=== PATIENT | female | born 1995 | race Caucasian/White ===

== ENCOUNTER 2017-11-25 18:47 | Emergency (ER) | payer OTHER ==
[2017-11-25 19:41] LABS: Urine Blood NEGATIVE (NEG); Urine Glucose NEGATIVE (NEG); Urine Protein TRACE (NEG); Urine Specific Gravity >1.030 (1.005-1.030)
[2017-11-25 19:58] LABS: Absolute Lymphocytes (CBC) 1.9 K/uL (0.7-4.9); Absolute Monocytes 0.5 K/uL (0.1-1.3); Absolute Neutrophil 3.4 K/uL (1.8-8.0); Basophils % 0.5 % (0-1.3); Eosinophils % 2.9 % (0-4.4); Hematocrit 38.1 % (36.0-45.0); Lymphocytes % 31.7 % (15.3-44.8); MCH 27.6 pg (27.0-35.0); MCV 81.7 fL (80-100); MPV 8.9 fL (7.6-11.3); Monocytes % 8.1 % (3.3-12.3); RBC Red Blood Cell Count 4.66 M/uL (3.86-4.86)
--- NOTE | 2017-11-25 20:02 | RAD REPORT ---
EXAM DESCRIPTION: CT - Stone Protocol - 11/25/2017 7:51 pm CLINICAL HISTORY: Abdominal pain. Left flank pain COMPARISON: 2015 TECHNIQUE: Computed axial tomography of the abdomen pelvis was obtained without oral or IV contrast. Lack of IV and oral contrast limits evaluation of solid organs, bowel, and vessels. Coronal reformat yahir images were obtained and reviewed. All CT scans are performed using dose optimization technique as appropriate and may include automated exposure control or mA/KV adjustment according to patient size. FINDINGS: A renal calculus is not seen. An ureteral calculus is not noted. A bladder calculus is not present. The liver, spleen, pancreas and adrenals appear grossly normal There is no evidence of diverticulitis. The appendix appears normal IMPRESSION: Negative for a genitourinary calculus
[2017-11-25] MEDS ORDERED: NA CHLORIDE 0.9% 1,000 ML ONE (20:12)
[2017-11-25] MEDS ORDERED: ONDANSETRON 4 MG/2 ML VIAL ONE (20:12)
[2017-11-25 20:14] LABS: Potassium 3.2 mEq/L (3.6-5.0)
[2017-11-25 20:21] LABS: Albumin 4.7 g/dL (3.2-5.5); Bilirubin Direct 0.1 mg/dL (0-0.2); Bilirubin Total 0.7 mg/dL (0.3-1.2); Protein, Total 7.3 g/dL (6.0-8.3)
[2017-11-25] MEDS ORDERED: KETOROLAC 30 MG/ML INJ ONE (20:39)
--- NOTE | 2017-11-25 20:46 | EDPHYS ---
Physician Documentation [facility] Name: Juana Sebastian Age: 22 yrs Sex: Female : 1995 Arrival Date: 11/25/2017 Time: 18:49 Bed 25 Private MD: ED Physician Dominic De Guzman HPI: 11/25 19:15 This 22 yrs old Female presents to ER via Ambulatory with complaints of Flank cp Pain. 19:15 The patient complains of pain in the mid back area. cp 19:15 The pain does not radiate. cp 19:15 Onset: The symptoms/episode began/occurred yesterday. Associated signs and symptoms: cp Pertinent negatives: diarrhea, headache, pain radiating to the lower extremities, vomiting. Patient reports she was diagnosed with UTI yesterday and is currently taking Bactrim. 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 - Social history:: Smoking status: Patient/guardian denies using tobacco. ROS: 19:20 Constitutional: Negative for body aches, chills, fever, poor PO intake. cp 19:20 Eyes: Negative for injury, pain, redness, and discharge. cp 19:20 ENT: Negative for drainage from ear(s), ear pain, sore throat, difficulty swallowing, difficulty handling secretions. 19:20 Cardiovascular: Negative for chest pain, edema, palpitations. 19:20 Respiratory: Negative for cough, shortness of breath, wheezing. 19:20 Abdomen/GI: Negative for abdominal pain, nausea, vomiting, and diarrhea, constipation, anorexia, black/tarry stool, rectal bleeding. 19:20 Back: Positive for flank pain, bilaterally, Negative for pain at rest, pain with movement. 19:20 Skin: Negative for cellulitis, rash. 19:20 Neuro: Negative for altered mental status, dizziness, headache, syncope, near syncope, weakness. 19:20 All other systems are negative. Exam: 19:30 Constitutional: The patient appears in no acute distress, alert, awake, non-toxic, well cp developed, well nourished. 19:30 Head/Face: Normocephalic, atraumatic. cp 19:30 Eyes: Periorbital structures: appear normal, Conjunctiva: normal, no exudate, no injection, Sclera: no appreciated abnormality, Lids and lashes: appear normal, bilaterally. 19:30 ENT: External ear(s): are unremarkable, Nose: is normal, Mouth: Lips: moist, Oral mucosa: pink and intact, moist, Posterior pharynx: is normal, airway is patent, no erythema, no exudate. 19:30 Chest/axilla: Inspection: normal, Palpation: is normal, no crepitus, no tenderness. 19:30 Cardiovascular: Rate: normal, Rhythm: regular. 19:30 Respiratory: the patient does not display signs of respiratory distress, Respirations: normal, no use of accessory muscles, no retractions, no splinting, no tachypnea, labored breathing, is not present, Breath sounds: are clear throughout, no decreased breath sounds, no stridor, no wheezing. 19:30 Abdomen/GI: Inspection: abdomen appears normal, Bowel sounds: active, all quadrants, Palpation: abdomen is soft and non-tender, in all quadrants, rebound tenderness, is not appreciated, voluntary guarding, is not appreciated, involuntary guarding, is not appreciated. 19:30 Back: pain, that is mild, of the mid back area, ROM is normal, Straight leg raises: of both lower extremities does not illicit pain. 19:30 Musculoskeletal/extremity: Exam is negative for bony tenderness, calf tenderness, decreased range of motion, injury. 19:30 Skin: cellulitis, is not appreciated, no rash present. 19:30 Neuro: Orientation: to person, place \T\ time. Mentation: is normal, Cerebellar function: is grossly normal, Motor: moves all fours, strength is normal, Sensation: no obvious gross deficits, Gait: is steady, at a normal pace, without difficulty. Vital Signs: 18:56 BP 128 / 90; Pulse 98; Resp 19; Temp 98.4; Pulse Ox 100% on R/A; Weight 68.04 kg; la1 Height 5 ft. 3 in. (160.02 cm); 19:41 BP 130 / 85; Pulse 78; Resp 20; Pulse Ox 100% ; kb1 20:21 BP 114 / 65; Pulse 76; Resp 20; Pulse Ox 100% ; kb1 21:18 BP 120 / 78; Pulse 63; Resp 18; Pulse Ox 100% ; kb1 18:56 Body Mass Index 26.57 (68.04 kg, 160.02 cm) la1 MDM: 19:13 Patient medically screened. cp 20:45 Data reviewed: vital signs, lab test result(s), radiologic studies, CT scan, and as a cp result, I will discharge patient. 20:45 Differential diagnosis: nephrolithiasis, pyelonephritis, UTI, pancreatitis. Counseling: cp I had a detailed discussion with the patient and/or guardian regarding: the historical points, exam findings, and any diagnostic results supporting the discharge/admit diagnosis, lab results, radiology results, to return to the emergency department if symptoms worsen or persist or if there are any questions or concerns that arise at home. Response to treatment: the patient's symptoms have markedly improved after treatment, and as a result, I will discharge patient. 11/25 19:16 Order name: Urine Dipstick--Ancillary (enter results); Complete Time: 20:06 [facility] 11/25 20:30 Interpretation: Reviewed. 11/25 19:16 Order name: Urine --Ancillary (enter results); Complete Time: 20:06 em1 11/25 20:30 Interpretation: Reviewed. 11/25 19:24 Order name: Amylase, Serum cp 11/25 19:24 Order name: Basic Metabolic Panel 11/25 19:24 Order name: CBC with Diff; Complete Time: 20:06 cp 11/25 20:15 Interpretation: Reviewed. 11/25 19:24 Order name: Creatinine for Radiology; Complete Time: 20:28 cp 11/25 19:24 Order name: Hepatic Function; Complete Time: 20:28 cp 11/25 20:29 Interpretation: Normal except: SGPT 9. cp 11/25 19:24 Order name: Lipase; Complete Time: 20:28 cp 11/25 20:29 Interpretation: LIP 18; Reviewed. 11/25 19:24 Order name: CT Stone Protocol; Complete Time: 20:06 cp 11/25 19:24 Order name: Amylase Level; Complete Time: 20:28 EDMS 11/25 19:24 Order name: Basic Metabolic Panel; Complete Time: 20:28 EDMS 11/25 20:28 Interpretation: Normal except: K 3.2; CO2 19; CRE 1.01; GFR 68. cp 11/25 19:14 Order name: Urine Dipstick-Ancillary (obtain specimen); Complete Time: 19:16 cp 11/25 19:14 Order name: Urine Test (obtain specimen); Complete Time: 19:16 cp 11/25 19:24 Order name: IV Saline Lock; Complete Time: 19:40 cp 11/25 19:24 Order name: Labs collected and sent; Complete Time: 19:41 cp Administered Medications: 20:14 Drug: NS 0.9% 1000 ml Route: IV; Rate: 1 bolus; Site: right antecubital; kb1 20:14 Drug: Zofran 4 mg Route: IVP; Site: right antecubital; kb1 21:23 Follow up: Response: Nausea is decreased kb1 20:22 Drug: TORadol 30 mg Route: IVP; Site: right antecubital; kb1 21:23 Follow up: Response: Pain is decreased kb1 20:45 Drug: Potassium Effervescent Tablet 50 mEq Route: PO; aj1 21:23 Follow up: Response: No adverse reaction kb1 Disposition: 11/25/17 20:45 Discharged to Home. Impression: Low back pain. - Condition is Stable. - Discharge Instructions: Back Pain, Adult, Musculoskeletal Pain, Back Exercises, [id number]. - Prescriptions for Ibuprofen 800 mg Oral Tablet - take 1 tablet by ORAL route every 8 hours As needed take with food; 30 tablet. Cyclobenzaprine 10 mg Oral Tablet - take 1 tablet by ORAL route every 8 hours As needed; 20 tablet. - Medication Reconciliation Form, Thank You Letter, Antibiotic Education, Prescription Opioid Use form. - Follow up: Private Physician; When: 2 - 3 days; Reason: Recheck today's complaints. - Problem is new. - Symptoms have improved. Addendum: 11/28/2017 08:39 Co-signature as Attending Physician, Dominic De Guzman MD I agree with the assessment and c bloom plan of care. Signatures: Dispatcher [employer] Kandace Pollard RN RN aj1 Dominic De Guzman MD MD cha Attema, Lee RN RN la1 Dominic Camacho PA PA cp Brown, Kristina RN RN kb1 Corrections: (The following items were deleted from the chart) 11/25 20:28 20:15 Normal except: K 3.2; CO2 19. cp cp
--- NOTE | 2017-11-25 20:46 | ER ---
Nurse's Notes [facility] Name: Juana Sebastian Age: 22 yrs Sex: Female : 1995 Arrival Date: 11/25/2017 Time: 18:49 Bed 25 Private MD: Diagnosis: Low back pain Presentation: 11/25 18:55 Presenting complaint: Patient states: I have been having flank pain, mostly on the la1 left. I was put on bactrim for 2 days so far but the pain is getting worse. Transition of care: patient was not received from another setting of care. Onset of symptoms was November 25, 2017. Care prior to arrival: None. 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 - Social history:: Smoking status: Patient/guardian denies using tobacco. Screenin:41 Abuse screen: Denies threats or abuse. Nutritional screening: No deficits noted. kb1 Tuberculosis screening: No symptoms or risk factors identified. Fall Risk IV access (20 points). Assessment: 19:41 Reassessment: States was diagnosed with a UTI yesterday, today after she started taking kb1 the bactrim she started having worse back pain. States "I think I have pyelonephritis, I have all the symptoms". General: Appears in no apparent distress. Behavior is calm, cooperative. Pain: Complains of pain in Left flank. Neuro: Level of Consciousness is awake, alert, obeys commands, Oriented to person, place, time, situation. Cardiovascular: Patient's skin is warm and dry. Respiratory: Airway is patent. GI: No signs and/or symptoms were reported involving the gastrointestinal system. : No signs and/or symptoms were reported regarding the genitourinary system. 20:21 Reassessment: Patient appears in no apparent distress at this time. Patient and/or kb1 family updated on plan of care and expected duration. Pain level reassessed. Patient is alert, oriented x 3, equal unlabored respirations, skin warm/dry/pink. Sitting comfortably on side of bed texting. 21:18 Reassessment: Patient appears in no apparent distress at this time. Patient and/or kb1 family updated on plan of care and expected duration. Pain level reassessed. Patient is alert, oriented x 3, equal unlabored respirations, skin warm/dry/pink. Patient states feeling better. Vital Signs: 18:56 BP 128 / 90; Pulse 98; Resp 19; Temp 98.4; Pulse Ox 100% on R/A; Weight 68.04 kg; la1 Height 5 ft. 3 in. (160.02 cm); 19:41 BP 130 / 85; Pulse 78; Resp 20; Pulse Ox 100% ; kb1 20:21 BP 114 / 65; Pulse 76; Resp 20; Pulse Ox 100% ; kb1 21:18 BP 120 / 78; Pulse 63; Resp 18; Pulse Ox 100% ; kb1 18:56 Body Mass Index 26.57 (68.04 kg, 160.02 cm) la1 ED Course: 18:49 Patient arrived in ED. as 18:56 Triage completed. la1 18:56 Arm band placed on left wrist. la1 19:13 Dominic Camacho PA is PHCP. cp 19:13 Dominic De Guzman MD is Attending Physician. cp 19:27 Radiology exam delayed due to test not completed at this time. jg1 19:31 Kandace Antoine, LAUREANO is Primary Nurse. aj1 19:41 Patient has correct armband on for positive identification. Bed in low position. Call kb1 light in reach. Side rails up X 1. Refused to put on gown. States "my boyfriends brother is coming here and I'm meeting him for the first time so I would rather not be in a gown.". 19:41 No provider procedures requiring assistance completed. Inserted saline lock: 20 gauge kb1 in right antecubital area, using aseptic technique. Blood collected. 19:[address] via wheelchair. nj 19:50 CT Stone Protocol In Process Unspecified. EDMS 19:50 CT completed. Patient moved back from [place]. nj 21:24 IV discontinued, intact, bleeding controlled, No redness/swelling at site. Pressure kb1 dressing applied. Administered Medications: 20:14 Drug: NS 0.9% 1000 ml Route: IV; Rate: 1 bolus; Site: right antecubital; kb1 20:14 Drug: Zofran 4 mg Route: IVP; Site: right antecubital; kb1 21:23 Follow up: Response: Nausea is decreased kb1 20:22 Drug: TORadol 30 mg Route: IVP; Site: right antecubital; kb1 21:23 Follow up: Response: Pain is decreased kb1 20:45 Drug: Potassium Effervescent Tablet 50 mEq Route: PO; aj1 21:23 Follow up: Response: No adverse reaction kb1 Outcome: 20:45 Discharge ordered by MD. cp 21:24 Discharged to home ambulatory, with family. kb1 21:24 Condition: improved 21:24 Discharge instructions given to patient, Instructed on discharge instructions, follow up and referral plans. medication usage, Demonstrated understanding of instructions, follow-up care, medications, Prescriptions given X 2. 21:30 Patient left the ED. kb1 Signatures: Dispatcher [employer] EDMS Kandace Antoine RN RN aj1 Edna Vieyra Amelia as Attema, Lee, RN RN la1 Dominic Camacho PA PA cp Jordan, Nathan nj Brown, Kristina, RN RN kb1
[2017-11-25] MEDS ORDERED: POTASSIUM 25 MEQ EFFERV TAB ONE (20:58)
[2017-11-25 21:41] VITALS: TEMP 98.4; O2SAT 100
[2017-11-25 21:45] VITALS: BP 120/78
== END 2017-11-25 21:30 | disposition home or self-care (01) ==
LOC: ER 18:47
DX: M54.5 Low back pain (principal); Z88.5 Allergy status to narcotic agent; Z91.040 Latex allergy status
CPT/HCPCS: 36415; 74176; 76377; 80048; 80076; 81003; 81025; 82150; 83690; 85025; 96374; 96375; 99284; J2405; J7030